=== PATIENT | male | born 1940 | race Caucasian/White ===

== ENCOUNTER → 2018-07-20 17:17 | Outpatient (CLI) | payer MEDICARE, OTHER, SELFPAY ==
[2018-07-20 17:40] LABS: Bacteria Urine None Seen
[2018-07-20 18:18] LABS: Appearance Urine UA CLEAR; Bilirubin Urine UA NEGATIVE (NEGATIVE); Color Urine UA YELLOW; Glucose Urine UA NEGATIVE (Normal); Ketones Urine UA NEGATIVE (NEGATIVE); Leukocyte Esterase Urine UA NEGATIVE (NEGATIVE); Nitrite Urine UA NEGATIVE (Negative); Occult Blood Urine UA NEGATIVE (Negative); Protein Urine UA 3+ (Negative); Urobilinogen Urine UA 0.2 E.U./dL (0.2); pH Urine UA 6.5 (4.5-8.0)
[2018-07-20 18:28] LABS: Add Manual Diff / Slide Review NO; Basophils Percent Auto 1.4 % (0-2); Eosinophils Percent Auto 7.8 % (2-4); Hematocrit 45.9 % (41-53); Hemoglobin 15.4 g/dL (13.5-17.5); Lymphocytes Percent Auto 8.6 % (25-40); Mean Corpuscular HGB Conc 33.6 % (30-36); Mean Corpuscular Hemoglobin 31.7 PG (26-34); Mean Corpuscular Volume 94.4 fL (80-100); Monocytes Percent Auto 4.7 % (3-14); Neutrophils Absolute Auto 7500 /uL (3000-5900); Neutrophils Percent Auto 77.5 % (50-75); Platelet Count 202 X10^3/uL (150-400); Red Blood Cell Count 4.86 X10^6/uL (4.5-5.9); Red Cell Distribution Width 12.8 % (11.6-14.8); White Blood Cell Count 9.6 X10^3/uL (4.5-11.0)
[2018-07-20 18:29] LABS: Culture Indicated Urine Cult Not Indicated; RBC Urine 0-1/HPF (0-5/HPF); Squamous Epithelial Cell Urine None Seen; Urine Comments Microscopic Normal; WBC Urine 0-1/HPF (0-5/HPF)
[2018-07-20 18:37] LABS: Protein (Total) Urine Random 379 mg/dL (0-12); Protein Creatinine Ratio Urine 6.64 GRAM/24H
[2018-07-20 18:39] LABS: Albumin 4.3 g/dL (3.5-5.0); BUN Creatinine Ratio 14.2 (6-22); Blood Urea Nitrogen 44 mg/dL (9-20); Calcium 9.8 mg/dL (8.4-10.2); Carbon Dioxide 27 mmol/L (22-32); Chloride 100 mmol/L (98-107); Estimated Glomerular Filt Rate 19.6 mL/min (>60); Glucose 60 mg/dL (80-110); HEMOLYSIS < 15 (0-50); Magnesium 2.2 mg/dL (1.6-2.3); Phosphorous 4.2 mg/dL (2.3-3.7); Potassium 4.4 mmol/L (3.4-5.1); Sodium 142 mmol/L (137-145); Uric Acid 8.2 mg/dL (3.5-8.5)
[2018-07-20 18:40] LABS: Hemoglobin A1C% w Est Avg Glu 5.4 % (4.0-6.0)
[2018-07-23 13:59] LABS: Parathyroid Hormone Int 63 pg/mL (14-64)
== END ==
PROVIDERS: PCP Internal Medicine; Visit Provider Internal Medicine Nephrology
DX: N18.4 Chronic kidney disease, stage 4 (severe) (principal); Z79.4 Long term (current) use of insulin
CPT/HCPCS: 36415; 80069; 81001; 82570; 83036; 83735; 83970; 84156; 84550; 85025

== ENCOUNTER → 2018-09-15 10:03 | Outpatient (CLI) | payer MEDICARE, OTHER, SELFPAY ==
[2018-09-15 10:14] LABS: Bacteria Urine None Seen; RBC Urine None Seen (0-5/HPF); WBC Urine None Seen (0-5/HPF)
[2018-09-15 11:25] LABS: Hematocrit 40.9 % (41-53); Hemoglobin 13.8 g/dL (13.5-17.5); Mean Corpuscular HGB Conc 33.7 % (30-36); Mean Corpuscular Hemoglobin 31.9 PG (26-34); Mean Corpuscular Volume 94.8 fL (80-100); Platelet Count 191 X10^3/uL (150-400); Red Blood Cell Count 4.32 X10^6/uL (4.5-5.9); Red Cell Distribution Width 12.5 % (11.6-14.8); White Blood Cell Count 12.5 X10^3/uL (4.5-11.0)
[2018-09-15 11:28] LABS: Appearance Urine UA CLEAR; Bilirubin Urine UA NEGATIVE (NEGATIVE); Color Urine UA YELLOW; Glucose Urine UA NEGATIVE (Negative); Ketones Urine UA NEGATIVE (NEGATIVE); Leukocyte Esterase Urine UA NEGATIVE (NEGATIVE); Nitrite Urine UA NEGATIVE (Negative); Occult Blood Urine UA NEGATIVE (Negative); Protein Urine UA 2+ (Negative); Urobilinogen Urine UA 0.2 E.U./dL (0.2)
[2018-09-15 11:36] LABS: Culture Indicated Urine Cult Not Indicated; Urine Comments Microscopic Normal
[2018-09-15 11:55] LABS: Albumin 3.9 g/dL (3.5-5.0); BUN Creatinine Ratio 14.3 (6-22); Blood Urea Nitrogen 50 mg/dL (9-20); Calcium 8.7 mg/dL (8.4-10.2); Carbon Dioxide 24 mmol/L (22-32); Chloride 100 mmol/L (98-107); Glucose 128 mg/dL (80-110); HEMOLYSIS < 15 (0-50); Magnesium 2.6 mg/dL (1.6-2.3); Potassium 4.6 mmol/L (3.4-5.1); Sodium 136 mmol/L (137-145)
[2018-09-15 12:00] LABS: Creatinine Urine Random 89.7 mg/dL
[2018-09-15 12:09] LABS: Protein (Total) Urine Random 244 mg/dL (0-12); Protein Creatinine Ratio Urine 2.72 GRAM/24H
== END ==
PROVIDERS: Family Provider Internal Medicine; PCP Internal Medicine; Visit Provider Internal Medicine Nephrology
DX: N18.4 Chronic kidney disease, stage 4 (severe) (principal)
CPT/HCPCS: 36415; 80069; 81001; 82570; 83735; 84156; 85027

== ENCOUNTER 2018-10-18 13:52 | Emergency (ER) | payer MEDICARE, OTHER, SELFPAY ==
[2018-10-18 14:06] VITALS: BP 128/60; PULSE 74; RESP 18; TEMP 36.6; O2SAT 95; BMI 26.7
--- NOTE | 2018-10-18 14:23 | ED.MALEGU ---
HPI - Male Genitourinary <KATIE Crouch - Last Filed: 10/18/18 21:35> General Chief complaint: Urogenital-Male Stated complaint: THINKS HE HAS BLADDER INFECTION Time Seen by Provider: 10/18/18 13:59 Source: patient Mode of arrival: ambulatory Limitations: no limitations History of Present Illness HPI Narrative: 77-year-old male with history of hypertension and diabetes there is a former smoker here for complaint of having urinary tract infection. he reports that he has had burning with urination and also increased urinary frequency along with some blood in his urine he states he has had symptoms over the past few days. He denies any fevers. No flank pain. No nausea vomiting. No abdominal pain. Positive p.o. intake. he denies any rectal pain. He is currently taking doxycycline due to autoimmune disease. he denies any other concerns or complaints at this timeframe. MD Complaint: dysuria Related Data Previous Rx's Medication Instructions Recorded levofloxacin 750 mg PO DAILY #7 tab 10/18/18 Allergies Allergy/AdvReac Type Severity Reaction Status Date / Time hydrochlorothiazide Allergy Severe Abdominal Verified 10/18/18 14:12 Pain iodine Allergy Intermediate Flushing Verified 10/18/18 14:12 Ctjawxw-Ckl-Koh Reductase Allergy Fatigued Verified 10/18/18 14:13 Inhibitor Tetanus Vaccines and Toxoid Allergy Verified 10/18/18 14:13 Review of Systems <KATIE Crouch - Last Filed: 10/18/18 21:35> Constitutional Denies chills, Denies fever(s), Denies lethargy and Denies weakness Eyes Denies change in vision, Denies eye discharge, Denies irritation and Denies loss of vision ENT Ears, Nose, Mouth, and Throat: Denies change in voice, Denies neck pain and Denies sore throat Cardiovascular Denies chest pain, Denies irregular heart rhythm, Denies lightheadedness, Denies palpitations, Denies dyspnea, Denies dyspnea on exertion and Denies orthopnea Respiratory Denies cough, Denies dyspnea, Denies dyspnea on exertion and Denies wheezing Gastrointestinal Gastrointestinal: Denies abdominal pain, Denies change in bowel habits, Denies diarrhea, Denies nausea and Denies vomiting Genitourinary Comments: Dysuria increased ur Musculoskeletal Denies neck pain Integumentary/Breasts Denies pruritus, Denies erythema, Denies rash and Denies wounds Neurologic Denies loss of vision and Denies weakness Endocrine Denies palpitations Hematologic/Lymphatic Denies easy bruising Allergic/Immunologic Denies wheezing PFSH <KATIE Crouch - Last Filed: 10/18/18 21:35> Social History Smoking Status: Former smoker Social History Smoking Status: Former smoker Exam <KATIE Crouch - Last Filed: 10/18/18 21:35> Initial Vital Signs Initial Vital Signs: Vital Signs Temperature 97.9 F 10/18/18 14:06 Pulse Rate 74 10/18/18 14:06 Respiratory Rate 18 10/18/18 14:06 Blood Pressure 128/60 10/18/18 14:06 Pulse Oximetry 95 10/18/18 14:06 Const General: cooperative and well developed Nutritional Appearance: well nourished Orientation: alert, awake, oriented x3 and not confused HENMT Mouth: oral mucosae normal and moist mucous membranes Eyes Conjunctivae: conjunctivae normal Sclera: sclerae normal Pupils: PERRL EOM: EOM intact bilaterally Resp Effort & Inspection: normal respiratory effort, able to speak in complete sentences, no respiratory distress and no use of accessory muscles Auscultation: clear to auscultation bilaterally, no rales, no rhonchi and no wheezes Cardio Rate: regular rate Rhythm: regular rhythm Heart Sounds: no click, no gallops, no murmurs and no rubs Pulses: normal peripheral pulses GI Inspection: non-distended Palpation: soft, no hepatosplenomegaly, No guarding, No pulsatile mass and No tender Auscultation: normal bowel sounds General: No CVA tenderness Skin General: no rashes or lesions noted, No jaundice and No petechiae Neuro General: alert, oriented x3, gait normal and no focal motor deficits Speech: speech normal <Ave Oneill DO - Last Filed: 10/19/18 07:56> Initial Vital Signs Initial Vital Signs: Vital Signs Temperature 97.9 F 10/18/18 14:06 Pulse Rate 74 10/18/18 14:06 Respiratory Rate 18 10/18/18 14:06 Blood Pressure 128/60 10/18/18 14:06 Pulse Oximetry 95 10/18/18 14:06 Course <KATIE Crouch - Last Filed: 10/18/18 21:35> Orders Ordered: ED Orders 10/18/18 14:14 Urine Culture Stat Urine Microscopic Stat Vital Signs - 8 hr 10/18/18 14:06 Temperature 97.9 F Pulse Rate 74 Respiratory Rate 18 Blood Pressure 128/60 Pulse Oximetry 95 <Ave Oneill DO - Last Filed: 10/19/18 07:56> Orders Ordered: ED Orders 10/18/18 14:14 Urine Culture Stat Urine Microscopic Stat Vital Signs - 8 hr 10/18/18 14:06 Temperature 97.9 F Pulse Rate 74 Respiratory Rate 18 Blood Pressure 128/60 Pulse Oximetry 95 MDM - Male Genitourinary <KATIE Crouch - Last Filed: 10/18/18 21:35> Lab Data Lab Results 10/18/18 Range/Units 14:14 Urine RBC 5-10/hpf H (0-5/HPF) Urine WBC 10-30/hpf H (0-5/HPF) Urine Bacteria Few (2-10) H (None) Ur Culture Indicated? Specimen cultured Urine Dip Bedside Urine Glucose Negative Bedside Urine Bilirubin - Negative Bedside Urine Ketone - Negative Urine Specific [place] 1.010 Bedside Urine Occult Blood ++ Bedside Urine pH 7.0 Bedside Urine Protein ++ 100 Bedside Urine Urobilinogen - Negative Bedside Urine Nitrite + Positive Bedside Urine Leukocytes +++ 500 Esterase MDM Narrative Medical decision making narrative: urinalysis indicates urinary tract infection. Urine culture is pending. He is placed on Levaquin. Plenty of fluids. Follow up with Urology this week. For any worsening symptoms return to the emergency room. <Ave Oneill DO - Last Filed: 10/19/18 07:56> Lab Data Lab Results 10/18/18 Range/Units 14:14 Urine RBC 5-10/hpf H (0-5/HPF) Urine WBC 10-30/hpf H (0-5/HPF) Urine Bacteria Few (2-10) H (None) Ur Culture Indicated? Specimen cultured Urine Dip Bedside Urine Glucose Negative Bedside Urine Bilirubin - Negative Bedside Urine Ketone - Negative Urine Specific [place] 1.010 Bedside Urine Occult Blood ++ Bedside Urine pH 7.0 Bedside Urine Protein ++ 100 Bedside Urine Urobilinogen - Negative Bedside Urine Nitrite + Positive Bedside Urine Leukocytes +++ 500 Esterase Discharge Plan Departure Patient Disposition: Home Clinical Impression: Urinary tract infection Qualifiers: Urinary tract infection type: acute cystitis Hematuria presence: with hematuria Qualified Code(s): N30.01 - Acute cystitis with hematuria Discharge Date/Time: 10/18/18 15:53 Interventions: ED Discharge Assessment Last Done: 10/18/18 15:52 Instructions: DI for Urinary Tract Infection (UTI) Activity Restrictions/Additional Instructions: Urinalysis indicates urinary tract infection. You have been placed on antibiotic called Levaquin use as directed. Follow up with Urology later this week for re-evaluation. For any worsening symptoms return to the emergency room. Plenty of fluids. Prescriptions: New levofloxacin 750 mg tablet 750 mg PO DAILY Qty: 7 RF: 0 Referrals: Nick Ferro MD [Primary Care Provider] - <Ave Oneill DO - Last Filed: 10/19/18 07:56> Cosign ED Attending Millicentature Attestation: I was immediately available in the department for consultation. Documentation has been reviewed. I agree with assessment and plan.
[2018-10-18 14:36] LABS: RBC Urine 5-10/HPF (0-5/HPF)
[2018-10-18 14:37] LABS: Bacteria Urine Few (2-10); Culture Indicated Urine Specimen Cultured; WBC Urine 10-30/HPF (0-5/HPF)
== END 2018-10-18 15:53 | disposition home or self-care (01) ==
PROVIDERS: Emergency Provider Nurse Practitioner Family; Family Provider Internal Medicine; PCP Internal Medicine
DX: N30.01 Acute cystitis with hematuria (principal)
CPT/HCPCS: 81003; 81015; 87077; 87086; 87186; 99282; 99283

== ENCOUNTER 2018-11-13 12:26 | Emergency (ER) | payer MEDICARE, OTHER, SELFPAY ==
[2018-11-13] VITALS (11 sets, daily range): BP systolic 115–161; BP diastolic 62–81; PULSE 109–145; RESP 17–25; TEMP 38.1; O2SAT 85–99; BMI 26.0
--- NOTE | 2018-11-13 12:34 | DI.RAD.S_ITS ---
PROCEDURE: XR CHEST 1V INDICATIONS: severe hypoxia TECHNIQUE: One view of the chest was acquired. COMPARISON: None. FINDINGS: Surgical changes and devices: None. Lungs and pleura: There are diffuse, bilateral ill-defined patchy opacities with mild loss of vascular distinctness. Eventration of the right hemidiaphragm. Minimal blunting of the bilateral costophrenic angles may represent small pleural effusions. No pneumothorax. Mediastinum: Cardiomediastinal contours are within normal limits. Bones and chest wall: No suspicious bony lesions. Overlying soft tissues appear unremarkable. IMPRESSION: Diffuse bilateral ill-defined, patchy opacities with small bilateral pleural effusions and loss of vascular distinctness likely related to pulmonary edema. An infectious/inflammatory process not excluded if clinically appropriate. Dictated by: James Nation M.D. on 11/13/2018 at 12:45 Approved by: James Nation M.D. on 11/13/2018 at 12:48
--- NOTE | 2018-11-13 12:36 | ED.SOB ---
HPI - SOB/Dyspnea General Chief Complaint: Shortness of Breath/Dyspnea Stated Complaint: Respiratory Distress / Tachycardia Time Seen by Provider: 11/13/18 12:33 Source: EMS Mode of arrival: EMS Limitations: no limitations History of Present Illness Patient is a 77-year-old male is presenting with increasing shortness of breath. His wanted to bring him in last night but is until this morning. When EMS arrived who is in new onset atrial fibrillation heart rate 150s and O2 sat of 78% on room air. He continued to be hypoxic in the ED with O2 sats at 78% on room air with good waveform on the monitor. He has had some mild cough increasing shortness of breath over the past few days. He is on methotrexate for some skin problems they are unsure what it is. He has been on antibiotics also for skin problems he was treated with antibiotics for UTI October 19. He now has thrush in his throat. He he has some chest tightness, denies heart palpitations dizziness or lightheadedness. No history of COPD. 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 MD Complaint: shortness of breath and cough Related Data Home Medications Medication Instructions Recorded Confirmed CoQ-10 200 mg PO QPM 11/13/18 11/13/18 Probiotic 2 cap PO BEDTIME 11/13/18 11/13/18 albuterol sulfate 2 puff INHALATION PRN PRN 11/13/18 11/13/18 alirocumab [Praluent Pen] 1 dose SUBCUT DIRECTED 11/13/18 11/13/18 amlodipine 10 mg PO QPM 11/13/18 11/13/18 ascorbic acid (vitamin C) 1,000 mg PO BEDTIME 11/13/18 11/13/18 aspirin 81 mg PO QAM 11/13/18 11/13/18 carvedilol 25 mg PO BID 11/13/18 11/13/18 cholecalciferol (vitamin D3) 4,000 units PO BEDTIME 11/13/18 11/13/18 [Vitamin D3] cranberry extract 500 mg PO QAM 11/13/18 11/13/18 doxycycline hyclate 100 mg PO BID 11/13/18 11/13/18 duloxetine 30 mg PO QPM 11/13/18 11/13/18 ezetimibe 10 mg PO QPM 11/13/18 11/13/18 finasteride 5 mg PO QPM 11/13/18 11/13/18 folic acid 1 mg PO QPM 11/13/18 11/13/18 gabapentin 600 mg PO BEDTIME 11/13/18 11/13/18 hydralazine 100 mg PO BID 11/13/18 11/13/18 hydrocortisone 7.5 mg PO QAM 11/13/18 11/13/18 insulin aspart U-100 [Novolog 12 units SUBCUT TID 11/13/18 11/13/18 Flexpen U-100 Insulin] insulin glargine U-300 conc 24 units SUBCUT QAM 11/13/18 11/13/18 [Toujeo SoloStar U-300 Insulin] levothyroxine 75 mcg PO QAM 11/13/18 11/13/18 linagliptin [Tradjenta] 5 mg PO QAM 11/13/18 11/13/18 lisinopril 20 mg PO BID 11/13/18 11/13/18 methotrexate sodium 2.5 mg PO FR 11/13/18 11/13/18 multivitamin 1 tab PO BEDTIME 11/13/18 11/13/18 niacinamide [Niacin (niacinamide)] 500 mg PO TID 11/13/18 11/13/18 omeprazole 20 mg PO QPM 11/13/18 11/13/18 pravastatin 40 mg PO BEDTIME 11/13/18 11/13/18 prazosin 1 mg PO BID 11/13/18 11/13/18 prednisone 10 mg PO QAM 11/13/18 11/13/18 prednisone 40 mg PO QAM 11/13/18 11/13/18 selenium 200 mcg PO BEDTIME 11/13/18 11/13/18 tamsulosin 0.4 mg PO BEDTIME 11/13/18 11/13/18 torsemide 20 mg PO QPM 11/13/18 11/13/18 Allergies Allergy/AdvReac Type Severity Reaction Status Date / Time hydrochlorothiazide Allergy Severe Abdominal Verified 10/18/18 14:12 Pain iodine Allergy Intermediate Flushing Verified 10/18/18 14:12 Qvqgdrk-Kog-Dly Reductase Allergy Fatigued Verified 10/18/18 14:13 Inhibitor Tetanus Vaccines and Toxoid Allergy Verified 10/18/18 14:13 Review of Systems Review of Systems ROS Unobtainable: All systems reviewed & are unremarkable except as noted in HPI and below Constitutional Denies chills, Denies fever(s), Denies lethargy and Denies weakness Eyes Denies change in vision, Denies eye discharge, Denies irritation and Denies loss of vision ENT Ears, Nose, Mouth, and Throat: Denies change in voice, Denies neck pain and Denies sore throat Cardiovascular Reports rapid heart rate, Reports irregular heart rhythm and Reports dyspnea Respiratory Reports cough and Reports dyspnea Gastrointestinal Gastrointestinal: Denies abdominal pain, Denies change in bowel habits, Denies diarrhea, Denies nausea and Denies vomiting Genitourinary Denies hematuria, Denies flank pain, Denies urinary incontinence and Denies urinary urgency Musculoskeletal Denies neck pain Integumentary/Breasts Denies pruritus, Denies erythema, Denies rash and Denies wounds Neurologic Denies loss of vision and Denies weakness [facility] Medical History Hypertension (Acute) Insulin dependent diabetes mellitus (Acute) Social History Smoking Status: Former smoker Social History Smoking Status: Former smoker Exam Initial Vital Signs Initial Vital Signs: Vital Signs Temperature 100.5 F H 11/13/18 12:36 Pulse Rate 145 H 11/13/18 12:36 Respiratory Rate 25 H 11/13/18 12:36 Blood Pressure 147/73 H 11/13/18 12:36 Pulse Oximetry 94 11/13/18 12:36 Gen.: Acutely ill male cyanotic awake alert difficulty speaking HEENT: Atraumatic, EOMI, Neck: neck is supple no JVD Lungs: Coarse breath sounds bilaterally Cardiac: Tachycardic irregularly irregular no murmur Abdomen: Soft nontender nondistended Extremities: No gross bony deformities moving all extremities peripheral pulses intact Neurologic: Awake alert oriented x4 Course Orders Ordered: ED Orders 11/13/18 12:30 B Type Natriuretic Peptide Stat Complete Blood Count AUTO DIFF Stat Comprehensive Metabolic Panel Stat Lactate (Lactic Acid) Stat Magnesium Stat Partial Thromboplastin Time Stat Procalcitonin Stat Prothrombin Time INR Stat Troponin & CK Cardiac Panel Stat 11/13/18 12:34 Consult to Respiratory Therapy Evaluate & Treat XR chest 1V Stat Arterial Blood Gas Stat 11/13/18 12:35 EKG-12 Lead Stat 11/13/18 13:00 Arterial Blood Gas Stat 11/13/18 13:05 Blood Culture Stat 11/13/18 13:50 Influenza A and B by PCR Rapid Stat 11/13/18 16:01 Sputum Culture Stat 11/14/18 05:00 Hemoglobin and Hematocrit DAILY Sodium Chloride (Normal Saline 0.9%) 1,000 mls @ 150 mls/hr IV CONT JAXSON Last Infusion: 11/13/18 18:36 Dose: 0 mls/hr Admin: 11/13/18 12:45 Dose: 150 mls/hr Heparin Sodium/Dextrose (Heparin Drip) 25,000 unit in 500 mls @ 27.972 mls/hr IV CONT JAXSON; Protocol Last Admin: 11/13/18 14:10 Dose: 18 units/kg/hr, 27.972 mls/hr Discontinued Medications Albuterol/Ipratropium (Duoneb) 3 ml INH NOW ONE Stop: 11/13/18 12:35 Last Admin: 11/13/18 12:50 Dose: 3 ml Heparin Sodium (Porcine) (Heparin) 6,200 unit 80 unit/kg (6200 unit) IV NOW ONE Stop: 11/13/18 14:03 Last Admin: 11/13/18 14:08 Dose: 6,200 unit Piperacillin/Tazobactam/Dextrose (Zosyn) 3.375 gm in 50 mls @ 100 mls/hr IV NOW ONE Stop: 11/13/18 13:56 Last Infusion: 11/13/18 14:17 Dose: 0 mls/hr Admin: 11/13/18 13:47 Dose: 100 mls/hr Vancomycin HCl 1,250 mg/ (Sodium Chloride) 250 mls @ 250 mls/hr IV NOW ONE Stop: 11/13/18 13:28 Last Infusion: 11/13/18 16:06 Dose: 0 mls/hr Admin: 11/13/18 15:04 Dose: 250 mls/hr Methylprednisolone (Solu-Medrol 125 Mg Vial) 125 mg IV NOW ONE Stop: 11/13/18 12:35 Last Admin: 11/13/18 12:45 Dose: 125 mg Metoprolol Tartrate (Lopressor) 5 mg IV NOW ONE Stop: 11/13/18 12:50 Last Admin: 11/13/18 12:55 Dose: 5 mg Metoprolol Tartrate (Lopressor) 5 mg IV NOW ONE Stop: 11/13/18 13:39 Last Admin: 11/13/18 13:39 Dose: 5 mg Vital Signs - 8 hr 11/13/18 12:36 11/13/18 12:57 11/13/18 13:01 Temperature 100.5 F H Pulse Rate 145 H 140 H 119 H Respiratory Rate 25 H 22 24 Blood Pressure 147/73 H Blood Pressure [Right Arm] 140/81 Pulse Oximetry 94 85 L 11/13/18 13:23 11/13/18 14:15 11/13/18 14:30 Temperature Pulse Rate 126 H 117 H 116 H Respiratory Rate 19 25 H 21 Blood Pressure Blood Pressure [Right Arm] 161/71 H 123/77 133/75 Pulse Oximetry 99 95 11/13/18 15:03 11/13/18 15:20 11/13/18 16:37 Temperature Pulse Rate 117 H Respiratory Rate 21 Blood Pressure Blood Pressure [Right Arm] 146/74 H Pulse Oximetry 95 97 92 11/13/18 18:06 Temperature Pulse Rate 109 H Respiratory Rate 22 Blood Pressure 132/62 Blood Pressure [Right Arm] Pulse Oximetry 96 MDM - SOB/Dyspnea Lab Data Attestation: I reviewed the patient's lab results. Result diagrams: 11/13/18 12:30 11/13/18 12:30 Lab Results 11/13/18 11/13/18 11/13/18 Range/Units 12:30 12:30 12:30 WBC 13.4 H (4.5-11.0) X10^3/uL RBC 4.16 L (4.5-5.9) X10^6/uL Hgb 13.0 L (13.5-17.5) g/dL Hct 39.8 L (41-53) % MCV 95.6 (80-100) fL MCH 31.3 (26-34) PG MCHC 32.8 (30-36) % RDW 14.0 (11.6-14.8) % Plt Count 107 L (150-400) X10^3/uL Neut % (Auto) Foundation Coordinator Lymph % (Auto) Foundation Coordinator [place] % (Auto) Foundation Coordinator Eos % (Auto) Foundation Coordinator Baso % (Auto) Foundation Coordinator Neut # (Auto) Foundation Coordinator Lymph # (Auto) Foundation Coordinator [place] # (Auto) Foundation Coordinator Eos # (Auto) Foundation Coordinator Baso # (Auto) Foundation Coordinator Total Counted 100 Seg Neutrophils % 84.0 H (38-70) % Lymphocytes % (Manual) 5.0 L (25-45) % Monocytes % (Manual) 11.0 (2-11) % Neutrophils # (Manual) 04673 H (2338-2105) /uL Nucleated RBCs 3 H ( - 0) #/Diff RBC Morphology Not Reportable Anisocytosis 1+ H PT 12.4 (10.1-12.7) SECONDS INR 1.1 (0.9-1.3) APTT 27 (26.4-36.2) SECONDS ABG pH (7.35-7.45) ABG pCO2 (35-45) mmHg ABG pO2 (80-100) mmHg ABG HCO3 (22-26) mmol/L ABG Total CO2 (21-31) mmol/L ABG O2 Saturation (95-100) % ABG Base Excess (-2-2) mmol/L FiO2 Sodium 142 (137-145) mmol/L Potassium 4.2 (3.4-5.1) mmol/L Chloride 104 (98-107) mmol/L Carbon Dioxide 29 (22-32) mmol/L BUN 71 H (9-20) mg/dL Creatinine 4.30 H (0.66-1.25) mg/dL Estimated GFR 13.4 L (>60) mL/min BUN/Creatinine Ratio 16.5 (6-22) Glucose 84 (80-110) mg/dL Lactate (0.7-2.1) mmol/L Calcium 10.0 (8.4-10.2) mg/dL Magnesium 2.3 (1.6-2.3) mg/dL Total Bilirubin 1.0 (0.2-1.3) mg/dL AST 43 (17-59) IU/L ALT 33 (21-72) IU/L Alkaline Phosphatase 52 (38-126) U/L Total Creatine Kinase 21 L (55-170) U/L CK-MB (CK-2) TNP CK-MB (CK-2) Rel Index TNP Troponin I 0.144 H* (0.01-0.034) ng/mL B-Natriuretic Peptide 278 H (<100) Total Protein 6.0 L (6.3-8.2) g/dL Albumin 3.3 L (3.5-5.0) g/dL Globulin 2.7 (1.7-4.1) g/dL Albumin/Globulin Ratio 1.2 (1.0-2.8) Procalcitonin (<0.5) ng/mL Influenza A & B (PCR) (Negative) 11/13/18 11/13/18 11/13/18 Range/Units 12:30 12:30 13:00 WBC (4.5-11.0) X10^3/uL RBC (4.5-5.9) X10^6/uL Hgb (13.5-17.5) g/dL Hct (41-53) % MCV (80-100) fL MCH (26-34) PG MCHC (30-36) % RDW (11.6-14.8) % Plt Count (150-400) X10^3/uL Neut % (Auto) Lymph % (Auto) [place] % (Auto) Eos % (Auto) Baso % (Auto) Neut # (Auto) Lymph # (Auto) [place] # (Auto) Eos # (Auto) Baso # (Auto) Total Counted Seg Neutrophils % (38-70) % Lymphocytes % (Manual) (25-45) % Monocytes % (Manual) (2-11) % Neutrophils # (Manual) (9575-4742) /uL Nucleated RBCs ( - 0) #/Diff RBC Morphology Anisocytosis PT (10.1-12.7) SECONDS INR (0.9-1.3) APTT (26.4-36.2) SECONDS ABG pH 7.49 H (7.35-7.45) ABG pCO2 33.7 L (35-45) mmHg ABG pO2 60 L (80-100) mmHg ABG HCO3 26 (22-26) mmol/L ABG Total CO2 27 (21-31) mmol/L ABG O2 Saturation 93 L (95-100) % ABG Base Excess 3.0 H (-2-2) mmol/L FiO2 100 Sodium (137-145) mmol/L Potassium (3.4-5.1) mmol/L Chloride (98-107) mmol/L Carbon Dioxide (22-32) mmol/L BUN (9-20) mg/dL Creatinine (0.66-1.25) mg/dL Estimated GFR (>60) mL/min BUN/Creatinine Ratio (6-22) Glucose (80-110) mg/dL Lactate 1.4 (0.7-2.1) mmol/L Calcium (8.4-10.2) mg/dL Magnesium (1.6-2.3) mg/dL Total Bilirubin (0.2-1.3) mg/dL AST (17-59) IU/L ALT (21-72) IU/L Alkaline Phosphatase (38-126) U/L Total Creatine Kinase (55-170) U/L CK-MB (CK-2) CK-MB (CK-2) Rel Index Troponin I (0.01-0.034) ng/mL B-Natriuretic Peptide (<100) Total Protein (6.3-8.2) g/dL Albumin (3.5-5.0) g/dL Globulin (1.7-4.1) g/dL Albumin/Globulin Ratio (1.0-2.8) Procalcitonin 1.25 H (<0.5) ng/mL Influenza A & B (PCR) (Negative) 11/13/18 Range/Units 13:50 WBC (4.5-11.0) X10^3/uL RBC (4.5-5.9) X10^6/uL Hgb (13.5-17.5) g/dL Hct (41-53) % MCV (80-100) fL MCH (26-34) PG MCHC (30-36) % RDW (11.6-14.8) % Plt Count (150-400) X10^3/uL Neut % (Auto) Lymph % (Auto) [place] % (Auto) Eos % (Auto) Baso % (Auto) Neut # (Auto) Lymph # (Auto) [place] # (Auto) Eos # (Auto) Baso # (Auto) Total Counted Seg Neutrophils % (38-70) % Lymphocytes % (Manual) (25-45) % Monocytes % (Manual) (2-11) % Neutrophils # (Manual) (8776-8574) /uL Nucleated RBCs ( - 0) #/Diff RBC Morphology Anisocytosis PT (10.1-12.7) SECONDS INR (0.9-1.3) APTT (26.4-36.2) SECONDS ABG pH (7.35-7.45) ABG pCO2 (35-45) mmHg ABG pO2 (80-100) mmHg ABG HCO3 (22-26) mmol/L ABG Total CO2 (21-31) mmol/L ABG O2 Saturation (95-100) % ABG Base Excess (-2-2) mmol/L FiO2 Sodium (137-145) mmol/L Potassium (3.4-5.1) mmol/L Chloride (98-107) mmol/L Carbon Dioxide (22-32) mmol/L BUN (9-20) mg/dL Creatinine (0.66-1.25) mg/dL Estimated GFR (>60) mL/min BUN/Creatinine Ratio (6-22) Glucose (80-110) mg/dL Lactate (0.7-2.1) mmol/L Calcium (8.4-10.2) mg/dL Magnesium (1.6-2.3) mg/dL Total Bilirubin (0.2-1.3) mg/dL AST (17-59) IU/L ALT (21-72) IU/L Alkaline Phosphatase (38-126) U/L Total Creatine Kinase (55-170) U/L CK-MB (CK-2) CK-MB (CK-2) Rel Index Troponin I (0.01-0.034) ng/mL B-Natriuretic Peptide (<100) Total Protein (6.3-8.2) g/dL Albumin (3.5-5.0) g/dL Globulin (1.7-4.1) g/dL Albumin/Globulin Ratio (1.0-2.8) Procalcitonin (<0.5) ng/mL Influenza A & B (PCR) Negative (Negative) Urine Dip Bedside Urine Glucose Negative Bedside Urine Bilirubin - Negative Bedside Urine Ketone - Negative Urine Specific [place] 1.015 Bedside Urine Occult Blood - Negative Bedside Urine pH 8 Bedside Urine Protein +++ 300 Bedside Urine Urobilinogen - Negative Bedside Urine Nitrite - Negative Bedside Urine Leukocytes - Negative Esterase Imaging Data Chest x-ray: Radiologist's impression: PROCEDURE: XR CHEST 1V INDICATIONS: severe hypoxia TECHNIQUE: One view of the chest was acquired. COMPARISON: None. FINDINGS: Surgical changes and devices: None. Lungs and pleura: There are diffuse, bilateral ill-defined patchy opacities with mild loss of vascular distinctness. Eventration of the right hemidiaphragm. Minimal blunting of the bilateral costophrenic angles may represent small pleural effusions. No pneumothorax. Mediastinum: Cardiomediastinal contours are within normal limits. Bones and chest wall: No suspicious bony lesions. Overlying soft tissues appear unremarkable. IMPRESSION: Diffuse bilateral ill-defined, patchy opacities with small bilateral pleural effusions and loss of vascular distinctness likely related to pulmonary edema. An infectious/inflammatory process not excluded if clinically appropriate. Dictated by: James Nation M.D. on 11/13/2018 at 12:45 ECG Data Attestation: I personally reviewed and interpreted this ECG as follows: Prior ECG tracings: not available for review Interpretation: Atrial fibrillation with PVCs rate [address] changes no prior to compare MDM Narrative Medical decision making narrative: The patient is placed on high-flow nasal cannula tolerating it well overall appears much better. His chest x-ray does show pneumonia he has had cough no fever he has got mild leukocytosis elevated procalcitonin. Lactic acid is negative in blood pressure remained stable. At this time not septic. The due to patient renal function can't on scanned for PE. Patient's troponin is also positive which may be due to the renal function in or AFib. At this time will place patient on a heparin drip treating empirically for PE but positive troponin. I have spoken with Dr. Nesbitt who even though patient is not yet on dialysis may require dialysis in this admissio also consistent with positive troponin in high-flow nasal cannula the patient needs to be transferred to higher level of care Dr. Scott Critical Care Time Critical Care Time: Yes Total Critical Care Time: 30 Attestation: The high probability of a clinically significant, sudden or life threatening deterioration of the [cardiovascular] system(s) required my full and direct attention, intervention and personal management. The aggregate critical care time was [45] minutes. This time is in addition to time spent performing reported procedures but includes the following: [x] Data Review and interpretation [x] Patient assessment and monitoring of vital signs [x] Documentation [x] Medication orders and management Discharge Plan Departure [facility] Clinical Impression: Elevated troponin, Kidney disease Pneumonia Qualifiers: Pneumonia type: due to unspecified organism Laterality: bilateral Lung location: unspecified part of lung Qualified Code(s): J18.9 - Pneumonia, unspecified organism Respiratory failure Qualifiers: Chronicity: acute Respiratory failure complication: hypoxia Qualified Code(s): J96.01 - Acute respiratory failure with hypoxia Interventions: ED Discharge Assessment Last Done: 11/13/18 18:06 Prescriptions: No Action hydrocortisone 5 mg tablet 7.5 mg PO QAM RF: 0 carvedilol 25 mg tablet 25 mg PO BID RF: 0 prednisone 10 mg tablet 10 mg PO QAM RF: 0 torsemide 20 mg tablet 20 mg PO QPM RF: 0 pravastatin 40 mg tablet 40 mg PO BEDTIME RF: 0 lisinopril 20 mg tablet 20 mg PO BID RF: 0 prednisone 20 mg tablet 40 mg PO QAM RF: 0 levothyroxine 75 mcg tablet 75 mcg PO QAM RF: 0 tamsulosin 0.4 mg capsule 0.4 mg PO BEDTIME RF: 0 amlodipine 10 mg tablet 10 mg PO QPM RF: 0 omeprazole 20 mg capsule,delayed release(DR/EC) 20 mg PO QPM RF: 0 hydralazine 50 mg tablet 100 mg PO BID RF: 0 doxycycline hyclate 100 mg tablet 100 mg PO BID RF: 0 finasteride 5 mg tablet 5 mg PO QPM RF: 0 ezetimibe 10 mg tablet 10 mg PO QPM RF: 0 Novolog Flexpen U-100 Insulin 100 unit/mL insulin pen 12 units subcut TID RF: 0 duloxetine 30 mg capsule,delayed release(DR/EC) 30 mg PO QPM RF: 0 Tradjenta 5 mg tablet 5 mg PO QAM RF: 0 Toujeo SoloStar U-300 Insulin 300 unit/mL (1.5 mL) insulin pen 24 units subcut QAM RF: 0 Praluent Pen 75 mg/mL pen injector 1 dose subcut DIRECTED RF: 0 prazosin 1 mg capsule 1 mg PO BID RF: 0 gabapentin 300 mg capsule 600 mg PO BEDTIME RF: 0 multivitamin Tablet 1 tab PO BEDTIME RF: 0 ascorbic acid (vitamin C) 1,000 mg Tablet 1,000 mg PO BEDTIME RF: 0 aspirin 81 mg Tablet,Delayed Release (Dr/Ec) 81 mg PO QAM RF: 0 methotrexate sodium 2.5 mg tablet 2.5 mg PO FR RF: 0 cholecalciferol (vitamin D3) [Vitamin D3] 2,000 unit Capsule 4,000 units PO BEDTIME RF: 0 albuterol sulfate 90 mcg/actuation Aerosol Powdr Breath Activated 2 puff Inhalation PRN PRN (Reason: Shortness Of Breath) RF: 0 selenium 200 mcg Tablet 200 mcg PO BEDTIME RF: 0 niacinamide [Niacin (niacinamide)] 500 mg Tablet 500 mg PO TID RF: 0 folic acid 1 mg Tablet 1 mg PO QPM RF: 0 cranberry extract 500 mg Capsule 500 mg PO QAM RF: 0 CoQ-10 200 mg capsule 200 mg PO QPM RF: 0 Probiotic 2 cap PO BEDTIME RF: 0 Referrals: Nick Ferro MD [Primary Care Provider] -
[2018-11-13] MEDS: SODIUM CHLORIDE 0.9% 1,000 ML 150 ML IV (12:45)
[2018-11-13] MEDS: methylPREDNISolone 125 MG/2 ML VIAL IV (12:45)
[2018-11-13 12:49] LABS: Hematocrit 39.8 % (41-53); Mean Corpuscular HGB Conc 32.8 % (30-36); Mean Corpuscular Hemoglobin 31.3 PG (26-34); Mean Corpuscular Volume 95.6 fL (80-100); Platelet Count 107 X10^3/uL (150-400); Red Blood Cell Count 4.16 X10^6/uL (4.5-5.9); White Blood Cell Count 13.4 X10^3/uL (4.5-11.0)
[2018-11-13] MEDS: ALBUTEROL/IPRATROPIUM 3 ML AMPUL INH (12:50)
[2018-11-13 12:55] LABS: Add Manual Diff / Slide Review YES; INR 1.1 (0.9-1.3); Prothrombin Time 12.4 SECONDS (10.1-12.7)
[2018-11-13] MEDS: METOPROLOL TARTRATE 5 MG/5 ML INJ IV ×2 (12:55→13:39)
[2018-11-13 12:57] LABS: PTT Partial Thromboplastin Tim 27 SECONDS (26.4-36.2)
--- NOTE | 2018-11-13 12:59 | PC.NURSE ---
attempt at flu swab but pts nares both have blood in nares
[2018-11-13 13:07] LABS: B Type Natriuretic Peptide 278 (<100)
[2018-11-13 13:10] LABS: Fractionated Inspired Oxygen 100; HCO3 ABG 26 mmol/L (22-26); Oxygen Saturation ABG 93 % (95-100); PCO2 ABG 33.7 mmHg (35-45); TCO2 ABG 27 mmol/L (21-31); pH ABG 7.49 (7.35-7.45)
[2018-11-13 13:11] LABS: PO2 ABG 60 mmHg (80-100)
[2018-11-13 13:12] LABS: Procalcitonin 1.25 ng/mL (<0.5)
[2018-11-13 13:14] LABS: Neutrophils Absolute Manual 11256 /uL (3000-5900); Nucleated Red Blood Cells 3 #/Diff; Total Cells Counted 100
[2018-11-13 13:15] LABS: Anisocytosis 1+
[2018-11-13 13:19] LABS: Lactate (Lactic Acid) 1.4 mmol/L (0.7-2.1)
[2018-11-13 13:20] LABS: Alanine Aminotransferase 33 IU/L (21-72); Albumin 3.3 g/dL (3.5-5.0); Albumin Globulin Ratio 1.2 (1.0-2.8); Alkaline Phosphatase 52 U/L (38-126); Aspartate Aminotransferase 43 IU/L (17-59); BUN Creatinine Ratio 16.5 (6-22); Blood Urea Nitrogen 71 mg/dL (9-20); Carbon Dioxide 29 mmol/L (22-32); Chloride 104 mmol/L (98-107); Creatine Kinase 21 U/L (55-170); Estimated Glomerular Filt Rate 13.4 mL/min (>60); Globulin 2.7 g/dL (1.7-4.1); Glucose 84 mg/dL (80-110); HEMOLYSIS < 15 (0-50); Magnesium 2.3 mg/dL (1.6-2.3); Potassium 4.2 mmol/L (3.4-5.1); Sodium 142 mmol/L (137-145)
--- NOTE | 2018-11-13 13:46 | PC.NURSE ---
Per MD, Wash pts nares out of blood for flu test. Multiple attempts but unable to clear blood for flu swab
[2018-11-13] MEDS: PIPERACILLIN-TAZO 3.375 GM/50 ML FROZ.PIGGY IV (13:47)
[2018-11-13 13:55] LABS: Troponin I 0.144 ng/mL (0.01-0.034)
[2018-11-13] MEDS: HEPARIN 5,000 UNIT/ML VIAL 6200 UNIT IV (14:08)
[2018-11-13] MEDS: HEPARIN DRIP 25,000 UNIT/500 ML IV.SOLN 27.972 UNIT IV (14:10)
[2018-11-13 14:11] LABS: Influenza A and B by PCR Rapid Negative (Negative)
[2018-11-13] MEDS: VANCOMYCIN 1,250 MG in SODIUM CHLORIDE 0.9% 250 ML IV (15:04)
--- NOTE | 2018-12-09 11:12 | PC.NURSE ---
Heparin gtt went with pt at 1914
== END 2018-11-13 19:30 | disposition short-term general hospital (02) ==
PROVIDERS: Emergency Provider Emergency Medicine; Family Provider Internal Medicine; PCP Internal Medicine
DX: R74.8 Abnormal levels of other serum enzymes (principal); N28.9 Disorder of kidney and ureter, unspecified; J18.9 Pneumonia, unspecified organism; J96.01 Acute respiratory failure with hypoxia; R07.89 Other chest pain
CPT/HCPCS: 36415; 36591; 36600; 71045; 80053; 81003; 82550; 82805; 83605; 83735; 83880; 84145; 84484; 85025; 85610; 85730; 87040; 87070; 87077; 87205; 87400; 93005; 94640; 96361; 96365; 96366; 96367; 96375; 96376; 99285; J1644; J2543; J2930